=== PATIENT | male | born 1960 | race Caucasian/White ===

== ENCOUNTER 2016-08-14 07:41 | Emergency (ER) | payer OTHER ==
[2016-08-14 07:47] VITALS: BP 159/70; PULSE 50; RESP 20; TEMP 97
[2016-08-14] MEDS ORDERED: KETOROLAC 60 MG/2 ML VIAL IM STA (08:11)
--- NOTE | 2016-08-14 08:15 | ED ---
General Adult HPI - General Chief complaint: Dental/Oral Stated complaint: dental pain Time Seen by Provider: 08/14/16 07:45 Source: patient, RN notes reviewed Mode of arrival: ambulatory Limitations: no limitations - History of Present Illness Initial comments: This is a 55-year-old male who presents to the emergency pertinent complaining of an abscessed tooth. Patient states been ongoing for 2 days and getting worse. Patient states his right above his incisor on the upper left. Patient denies a fever patient denies drainage. Patient denies any other problems with that tooth in the past patient denies any injury. Patient denies any ALLERGIES to antibiotics - Related Data Previous Rx's Medication Instructions Recorded Acetaminophen with Codeine 1 each PO Q4H #20 tab 08/14/16 [Tylenol w/codeine #3] Amoxicillin 500 mg PO Q8H #30 capsule 08/14/16 Ibuprofen [Motrin] 600 mg PO Q6HR PRN #20 tab 08/14/16 Allergies Allergy/AdvReac Type Severity Reaction Status Date / Time No Known Allergies Allergy Verified 08/14/16 07:47 Review of Systems ROS Statement: Those systems with pertinent positive or pertinent negative responses have been documented in the HPI. ROS Other: All systems not noted in ROS Statement are negative. Past Medical History Past Medical History: No Reported History History of Any Multi-Drug Resistant Organisms: None Reported Past Surgical History: No Surgical Hx Reported Past Psychological History: No Psychological Hx Reported Smoking Status: Never smoker Past Alcohol Use History: None Reported Past Drug Use History: None Reported General Exam - General Exam Comments Initial Comments: GENERAL Patient is well-developed and well-nourished. Patient is in mild distress. EYES Patient's pupils are equal and round. Extraocular motion is intact Mouth Patient has an abscess above the upper left incisor SKIN Unremarkable NEURO The patient is alert and oriented 3 PYSCH Patient has normal interpersonal interactions. MUSCULOSKELETAL All 4 extremities have full range of motion Limitations: no limitations Course Vital Signs 08/14/16 07:43 Temperature 97 F L Pulse Rate 50 L Respiratory 20 Rate Blood Pressure 159/70 O2 Sat by Pulse 99 Oximetry Procedures - Incision & Drainage Consent Obtained: verbal consent Time Out Performed?: Yes Site: other (Gumline above the upper left incisor) Needle Aspiration Performed?: Yes Culture Obtained?: No Complications: pain Patient Tolerated Procedure: well Disposition Clinical Impression: Dental abscess Disposition: HOME SELF-CARE Condition: Good Instructions: Dental Abscess (ED) Additional Instructions: Patient should follow-up with a dentist. Prescriptions: Acetaminophen with Codeine [Tylenol w/codeine #3] 1 each PO Q4H #20 tab Amoxicillin 500 mg PO Q8H #30 capsule Ibuprofen [Motrin] 600 mg PO Q6HR PRN #20 tab PRN Reason: For pain Referrals: None,Stated [Primary Care Provider] - 1-2 days Time of Disposition: 08:14
== END 2016-08-14 08:23 | disposition home or self-care (01) ==
LOC: EC 07:41
DX: K04.7 Periapical abscess without sinus (principal)
CPT/HCPCS: 99282; 41800; J1885

== ENCOUNTER 2016-09-06 01:01 | Emergency (ER) | payer OTHER ==
[2016-09-06] MEDS ORDERED: methylPREDNISolone SOD SUCCI 125 MG/2 ML VIAL IM ONE (01:28)
[2016-09-06] MEDS ORDERED: KETOROLAC 60 MG/2 ML VIAL IM STA (01:28)
[2016-09-06] MEDS ORDERED: ORPHENADRINE 30 MG/ML 2 ML VIAL IM STA (01:28)
--- NOTE | 2016-09-06 01:43 | ED ---
Neck Injury/Pain HPI - General Chief Complaint: Neck Pain/Injury Stated Complaint: neck pain Time Seen by Provider: 09/06/16 01:15 Source: RN notes reviewed, old records reviewed Mode of arrival: wheelchair Limitations: no limitations - History of Present Illness Initial Comments: Patient is a 55 -year-old male with chief complaint of right sided neck spasm for the past 2 days. Patient reports that he was playing with his dogs and felt that he may have twisted her genitals neck in the wrong direction. Patient states that since then he has any pain with rotation of the neck. Patient states he has to look forward or turns entire body and orders able to move. He denies any history of chronic neck or back pain. He states that he's had muscle spasms but never to this extent before. Patient denies any fever or chills. He denies any headache, or shoulder pain. He states that the pain radiates from the base of the hairline down towards the median neck towards the shoulder blade. This be consistent with a trapezius muscle. She denies any numbness or tingling down the arm. Patient denies any recent fever, chills, shortness of breath, chest pain, back pain, abdominal pain, nausea vomiting, numbness or tingling, dysuria or hematuria, constipation or diarrhea, headaches or visual changes, or any other current symptoms - Related Data Previous Rx's Medication Instructions Recorded Cyclobenzaprine [Flexeril] 10 mg PO TID #20 tab 09/06/16 Dexamethasone 0.75 mg PO DAILY #12 tab 09/06/16 HYDROcodone/APAP 5-325MG [[place] 1 tab PO Q6HR PRN #10 tab 09/06/16 5-325] Allergies Allergy/AdvReac Type Severity Reaction Status Date / Time No Known Allergies Allergy Verified 09/06/16 01:10 Review of Systems ROS Statement: Those systems with pertinent positive or pertinent negative responses have been documented in the HPI. ROS Other: All systems not noted in ROS Statement are negative. Past Medical History Past Medical History: No Reported History History of Any Multi-Drug Resistant Organisms: None Reported Past Surgical History: Back Surgery, Ear Surgery, Hernia Repair Past Psychological History: No Psychological Hx Reported Smoking Status: Never smoker Past Alcohol Use History: Occasional Past Drug Use History: None Reported General Exam - General Exam Comments Initial Comments: Patient is a 55-year-old male. He doesn't appear to be in any acute distress. Limitations: no limitations General appearance: alert, in no apparent distress Head exam: Present: atraumatic, normocephalic, normal inspection Eye exam: Present: normal appearance, PERRL, EOMI. Absent: scleral icterus, conjunctival injection, periorbital swelling ENT exam: Present: normal exam, mucous membranes moist Neck exam: Present: normal inspection, tenderness (Patient has significant tenderness over the right trapezius muscle.). Absent: meningismus, lymphadenopathy Respiratory exam: Present: normal lung sounds bilaterally. Absent: respiratory distress, wheezes, rales, rhonchi, stridor Cardiovascular Exam: Present: regular rate, normal rhythm, normal heart sounds. Absent: systolic murmur, diastolic murmur, rubs, gallop, clicks GI/Abdominal exam: Present: soft, normal bowel sounds. Absent: distended, tenderness, guarding, rebound, rigid Extremities exam: Present: normal inspection, full ROM, normal capillary refill. Absent: tenderness, pedal edema, joint swelling, calf tenderness Back exam: Present: normal inspection Neurological exam: Present: alert, oriented X3, CN II-XII intact Psychiatric exam: Present: normal affect, normal mood Skin exam: Present: warm, dry, intact, normal color. Absent: rash Course Vital Signs 09/06/16 01:08 Temperature 97.9 F Pulse Rate 60 Respiratory 20 Rate Blood Pressure 147/79 O2 Sat by Pulse 99 Oximetry Medical Decision Making - Medical Decision Making Patient is 55-year-old male with chief complaint of right neck spasm. Patient is given IM Norflex, Toradol and Solumedrol.. Patient will be discharged with a starter pack of medications in one pain medicine to go home with. Patient given prescription for dexamethasone, Flexeril and [place]. I discussed that he needs to apply ice and heat over the area. I discussed the needs to massage the area and to do passive stretching. Discussed the importance of having a primary care provider. Return parameters discussed. - Radiology Data Radiology results: report reviewed Disc narrowing C5/C6, and C6/C7. Degenerative facet disease is seen c3/c4, c4/c5 , worst at c5/c6 on the right. Disposition Clinical Impression: Neck muscle spasm Disposition: HOME SELF-CARE Condition: Good Instructions: Muscle Spasm (ED) Additional Instructions: Apply heat and ice over the area. His and take them as directed. Patient advised to follow-up with a primary care provider. To passive stretching to and massage to release the tension for muscle. Prescriptions: Cyclobenzaprine [Flexeril] 10 mg PO TID #20 tab Dexamethasone 0.75 mg PO DAILY #12 tab HYDROcodone/APAP 5-325MG [[place] 5-325] 1 tab PO Q6HR PRN #10 tab PRN Reason: Pain Referrals: Molly Bradshaw MD [STAFF PHYSICIAN] - 1-2 days Time of Disposition: 02:12
--- NOTE | 2016-09-06 02:02 | XR ---
EXAM: XR Cervical Spine, 3 Views. CLINICAL HISTORY: Reason: Pain TECHNIQUE: Frontal and lateral views of the cervical spine. COMPARISON: No relevant prior studies available. FINDINGS: Vertebrae: Unremarkable. No definite fracture. Normal alignment. Disc spaces: Disc space narrowing at C5/C6 and C6/C7. Degenerative facet disease is seen at C3/C4, C4/C5, C5/C6, worst at C5/C6 on the right. Soft tissues: Unremarkable. IMPRESSION: No acute findings. Degenerative changes as described.
[2016-09-06] MEDS ORDERED: HYDROcodone/APAP 10-325MG 1 EACH TAB PO ONE (02:13)
[2016-09-06] MEDS ORDERED: CYCLOBENZAPRINE 10MG STARTER 3 TAB BTL PO STA (02:13)
[2016-09-06 02:31] VITALS: BP 121/79; PULSE 59; RESP 16; TEMP 99.2
== END 2016-09-06 02:31 | disposition home or self-care (01) ==
LOC: EC 01:01
DX: M62.838 Other muscle spasm (principal)
CPT/HCPCS: 72040; 99284; 96372 ×3; J2360; J2930; J1885

== ENCOUNTER 2016-09-12 03:10 | Emergency (ER) | payer OTHER ==
[2016-09-12 03:58] VITALS: BP 130/66; PULSE 76; RESP 18; TEMP 98.3
[2016-09-12] MEDS ORDERED: KETOROLAC 60 MG/2 ML VIAL IM STA (04:20)
[2016-09-12] MEDS ORDERED: ORPHENADRINE 30 MG/ML 2 ML VIAL IM STA (04:20)
--- NOTE | 2016-09-12 04:27 | ED ---
Neck Injury/Pain HPI - General Chief Complaint: Neck Pain/Injury Stated Complaint: Neck pain Time Seen by Provider: 09/12/16 03:56 Mode of arrival: ambulatory Limitations: no limitations - History of Present Illness MD Complaint: neck pain, neck injury -: days(s) Place: home Radiation: right lateral Severity: severe Quality: aching Consistency: constant Improves With: medication OTC/prescribed Worsens With: movement of neck Context: fall Associated Symptoms: none Treatments Prior to Arrival: prescription pain med - Related Data Previous Rx's Medication Instructions Recorded Cyclobenzaprine [Flexeril] 10 mg PO TID #20 tab 09/06/16 Dexamethasone 0.75 mg PO DAILY #12 tab 09/06/16 HYDROcodone/APAP 5-325MG [[place] 1 tab PO Q6HR PRN #10 tab 09/06/16 5-325] Hydrocodone/Acetaminophen [[place] 1 each PO Q6HR PRN #24 tab 09/12/16 5-325] Allergies Allergy/AdvReac Type Severity Reaction Status Date / Time No Known Allergies Allergy Verified 09/12/16 03:35 Review of Systems ROS Statement: Those systems with pertinent positive or pertinent negative responses have been documented in the HPI. ROS Other: All systems not noted in ROS Statement are negative. Constitutional: Denies: fever, weakness Respiratory: Denies: cough, dyspnea Cardiovascular: Denies: chest pain, palpitations, orthopnea Gastrointestinal: Denies: abdominal pain, vomiting Musculoskeletal: Denies: back pain Skin: Denies: rash Neurological: Denies: headache, weakness, numbness, paresthesias Past Medical History Past Medical History: No Reported History History of Any Multi-Drug Resistant Organisms: None Reported Past Surgical History: Back Surgery, Ear Surgery, Hernia Repair Past Psychological History: No Psychological Hx Reported Smoking Status: Never smoker Past Alcohol Use History: Occasional Past Drug Use History: None Reported General Exam Limitations: no limitations General appearance: alert, in no apparent distress Head exam: Present: atraumatic, normocephalic Eye exam: Present: normal appearance Neck exam: Present: tenderness, other (Patient appears to have torticollis, with decreased rotation. Patient is able to flex and extend the neck. There is increased muscle tone and there is tenderness to the right paraspinal muscles extending into the right trapezius.). Absent: meningismus, full ROM Respiratory exam: Present: normal lung sounds bilaterally. Absent: respiratory distress, wheezes, rales, rhonchi, stridor Cardiovascular Exam: Present: regular rate, normal rhythm, normal heart sounds, other (Radial pulses and capillary refill normal). Absent: systolic murmur, diastolic murmur, rubs, gallop Extremities exam: Present: normal inspection, full ROM Neurological exam: Present: alert, normal gait. Absent: motor sensory deficit Skin exam: Present: warm, dry, intact, normal color. Absent: rash Course Vital Signs 09/12/16 03:33 Temperature 98.3 F Pulse Rate 76 Respiratory 18 Rate Blood Pressure 130/66 O2 Sat by Pulse 97 Oximetry Disposition Clinical Impression: Strain of neck muscle Disposition: HOME SELF-CARE Condition: Fair Instructions: Cervical Strain (ED) Prescriptions: Hydrocodone/Acetaminophen [[place] 5-325] 1 each PO Q6HR PRN #24 tab PRN Reason: Pain Referrals: None,Stated [Primary Care Provider] - 1-2 days Chandrakant Bolanos, [Doctor of Osteopathic Medicine] - 1-2 days
--- NOTE | 2016-09-12 05:19 | CT ---
EXAM: CT Cervical Spine Without Intravenous Contrast. CLINICAL HISTORY: Reason: Pain TECHNIQUE: Axial computed tomography images of the cervical spine without intravenous contrast. CTDI is 20.6 mGy and DLP is 343.8 mGy-cm This CT exam was performed using one or more of the following dose reduction techniques: automated exposure control, adjustment of the mA and/or kV according to patient size, and/or use of iterative reconstruction technique. COMPARISON: No relevant prior studies available. FINDINGS: Vertebrae: Normal alignment of the cervical spine. Vertebral body heights are maintained. No acute fracture. Discs/spinal canal/neural foramina: Disc space narrowing at multiple levels from C5-6 through C7-T1. No significant spinal stenosis. As indicated, consider further evaluation with MRI to better evaluate for disc disease as indicated. Mild disc osteophytic bulges seen at multiple levels. Soft tissues: No prevertebral soft tissue abnormality. Lung apices: Unremarkable as visualized. IMPRESSION: 1. No acute bony abnormality. 2. Mild cervical spondylosis. Mild disc osteophytic bulges. 3. No significant spinal stenosis.
[2016-09-12] MEDS ORDERED: HYDROcodone/APAP 5-325MG 1 EACH TAB PO STA (05:36)
== END 2016-09-12 05:39 | disposition home or self-care (01) ==
LOC: EC 03:10
DX: S16.1XXA Strain of muscle, fascia and tendon at neck level, initial encounter (principal); W18.30XA Fall on same level, unspecified, initial encounter
CPT/HCPCS: 99283; 96372 ×2; 72125; J2360; J1885

== ENCOUNTER 2017-03-08 10:54 | Emergency (ER) | payer OTHER ==
[2017-03-08 11:02] VITALS: TEMP 98.5
[2017-03-08] MEDS ORDERED: SODIUM CHLORIDE 0.9% 1,000 ML IV STA (11:34)
[2017-03-08] MEDS ORDERED: RX INFO: IV CONTRAST WAS GIVEN 1 EACH MISC MISCELLANE PRN (11:34)
[2017-03-08] MEDS ORDERED: MORPHINE SULFATE 4 MG/ML SYRINGE IV STA (11:34)
[2017-03-08] MEDS ORDERED: ONDANSETRON 4 MG/2 ML VIAL IVP STA (11:34)
--- NOTE | 2017-03-08 11:38 | ED ---
Abdominal Pain HPI - General Chief Complaint: Abdominal Pain Stated Complaint: abdominal pain Time Seen by Provider: 03/08/17 11:28 Source: patient, RN notes reviewed Mode of arrival: ambulatory Limitations: no limitations - History of Present Illness Initial Comments: This a 56-year-old male presents emergency Department with chief complaint of right lower quadrant abdominal pain. Patient states this pain started last few days but much worse today. Patient states that he had some nausea and episode of dry heaving. Patient denies any known fever or chills. Denies any diarrhea , constipation, dysuria, hematuria. Patient states the pain is only in his right lower quadrant does not radiate to his back and has no history kidney stone. Patient states he believes he may have had his appendix out and present but is unsure. Patient denies any chest pain or shortness of breath. The pain is worse with movement and better at rest at this time. - Related Data Home Medications Medication Instructions Recorded Confirmed Acetaminophen Tab [Tylenol Tab] 650 mg PO Q4H PRN 03/08/17 03/08/17 Previous Rx's Medication Instructions Recorded Hydrocodone/Acetaminophen [[place] 1 tab PO Q6HR PRN #15 tab 03/08/17 5-325] Allergies Allergy/AdvReac Type Severity Reaction Status Date / Time No Known Allergies Allergy Verified 09/12/16 03:35 Review of Systems ROS Statement: Those systems with pertinent positive or pertinent negative responses have been documented in the HPI. ROS Other: All systems not noted in ROS Statement are negative. Past Medical History Past Medical History: No Reported History History of Any Multi-Drug Resistant Organisms: None Reported Past Surgical History: Back Surgery, Ear Surgery, Hernia Repair Past Psychological History: No Psychological Hx Reported Smoking Status: Never smoker Past Alcohol Use History: Occasional Past Drug Use History: None Reported General Exam Limitations: no limitations General appearance: alert, in no apparent distress Head exam: Present: atraumatic, normocephalic, normal inspection Eye exam: Present: normal appearance, PERRL, EOMI. Absent: scleral icterus, conjunctival injection, periorbital swelling Neck exam: Present: normal inspection, full ROM. Absent: tenderness, meningismus, lymphadenopathy Respiratory exam: Present: normal lung sounds bilaterally. Absent: respiratory distress, wheezes, rales, rhonchi, stridor Cardiovascular Exam: Present: regular rate, normal rhythm, normal heart sounds. Absent: systolic murmur, diastolic murmur, rubs, gallop, clicks GI/Abdominal exam: Present: soft, tenderness (Moderate tenderness right lower quadrant), normal bowel sounds. Absent: distended, guarding, rebound, rigid Back exam: Absent: CVA tenderness (R), CVA tenderness (L) Course Vital Signs 03/08/17 03/08/17 10:59 13:21 Temperature 98.5 F Pulse Rate 63 53 L Respiratory 17 20 Rate Blood Pressure 129/90 127/77 O2 Sat by Pulse 99 99 Oximetry Medical Decision Making - Medical Decision Making 56-year-old male present emergency from for right sided abdominal pain. Patient hasn't wall hernia noted on CT with no inflammatory changes no obstruction and not incarcerated. Patient will follow-up with on-call surgery. Patient also informed that he appears to have either spasm or possible mass needs a colonoscopy. - Lab Data Result diagrams: 03/08/17 11:48 03/08/17 11:48 Lab Results 03/08/17 03/08/17 03/08/17 Range/Units 11:48 11:48 11:48 WBC 6.2 (3.8-10.6) k/uL RBC 4.64 (4.30-5.90) m/uL Hgb 10.9 L (13.0-17.5) gm/dL Hct 36.1 L (39.0-53.0) % MCV 77.8 L (80.0-100.0) fL MCH 23.6 L (25.0-35.0) pg MCHC 30.3 L (31.0-37.0) g/dL RDW 16.9 H (11.5-15.5) % Plt Count 344 (150-450) k/uL Neutrophils % 66 % Lymphocytes % 22 % Monocytes % 6 % Eosinophils % 3 % Basophils % 1 % Neutrophils # 4.1 (1.3-7.7) k/uL Lymphocytes # 1.4 (1.0-4.8) k/uL Monocytes # 0.4 (0-1.0) k/uL Eosinophils # 0.2 (0-0.7) k/uL Basophils # 0.1 (0-0.2) k/uL Hypochromasia Marked Anisocytosis Slight Microcytosis Slight PT (9.0-12.0) sec INR (<1.2) APTT (22.0-30.0) sec Sodium 139 (137-145) mmol/L Potassium 4.8 (3.5-5.1) mmol/L Chloride 107 (98-107) mmol/L Carbon Dioxide 19 L (22-30) mmol/L Anion Gap 13 mmol/L BUN 21 H (9-20) mg/dL Creatinine 0.90 (0.66-1.25) mg/dL Est GFR (MDRD) Af Amer >60 (>60 ml/min/1.73 sqM) Est GFR (MDRD) Non-Af >60 (>60 ml/min/1.73 sqM) Glucose 109 H (74-99) mg/dL Plasma Lactic Acid Primitivo 1.4 (0.7-2.0) mmol/L Calcium 9.1 (8.4-10.2) mg/dL Total Bilirubin 0.5 (0.2-1.3) mg/dL AST 25 (17-59) U/L ALT 33 (21-72) U/L Alkaline Phosphatase 74 (38-126) U/L Total Protein 6.8 (6.3-8.2) g/dL Albumin 4.0 (3.5-5.0) g/dL Amylase 40 (30-110) U/L Lipase 82 (23-300) U/L / Range/Units 11:48 WBC (3.8-10.6) k/uL RBC (4.30-5.90) m/uL Hgb (13.0-17.5) gm/dL Hct (39.0-53.0) % MCV (80.0-100.0) fL MCH (25.0-35.0) pg MCHC (31.0-37.0) g/dL RDW (11.5-15.5) % Plt Count (150-450) k/uL Neutrophils % % Lymphocytes % % Monocytes % % Eosinophils % % Basophils % % Neutrophils # (1.3-7.7) k/uL Lymphocytes # (1.0-4.8) k/uL Monocytes # (0-1.0) k/uL Eosinophils # (0-0.7) k/uL Basophils # (0-0.2) k/uL Hypochromasia Anisocytosis Microcytosis PT 10.0 (9.0-12.0) sec INR 1.0 (<1.2) APTT 23.7 (22.0-30.0) sec Sodium (137-145) mmol/L Potassium (3.5-5.1) mmol/L Chloride (98-107) mmol/L Carbon Dioxide (22-30) mmol/L Anion Gap mmol/L BUN (9-20) mg/dL Creatinine (0.66-1.25) mg/dL Est GFR (MDRD) Af Amer (>60 ml/min/1.73 sqM) Est GFR (MDRD) Non-Af (>60 ml/min/1.73 sqM) Glucose (74-99) mg/dL Plasma Lactic Acid Primitivo (0.7-2.0) mmol/L Calcium (8.4-10.2) mg/dL Total Bilirubin (0.2-1.3) mg/dL AST (17-59) U/L ALT (21-72) U/L Alkaline Phosphatase (38-126) U/L Total Protein (6.3-8.2) g/dL Albumin (3.5-5.0) g/dL Amylase (30-110) U/L Lipase (23-300) U/L Disposition Clinical Impression: Abdominal pain, Inguinal hernia Disposition: HOME SELF-CARE Condition: Stable Instructions: Inguinal Hernia (ED) Additional Instructions: Follow-up with on-call surgery for evaluation and colonoscopy.Please return to the Emergency Department if symptoms worsen or any other concerns. Prescriptions: Hydrocodone/Acetaminophen [[place] 5-325] 1 tab PO Q6HR PRN #15 tab PRN Reason: Pain Referrals: None,Stated [Primary Care Provider] - 1-2 days Earl Gonzalez MD [STAFF PHYSICIAN] - 1-2 days Time of Disposition: 14:00
[2017-03-08 12:10] LABS: Anisocytosis Slight; Basophils # (A) 0.1 k/uL (0-0.2); Basophils % (A) 1 %; CH 23.6; CHCM 30.4; Eosinophils # (A) 0.2 k/uL (0-0.7); Eosinophils % (A) 3 %; HCT 36.1 % (39.0-53.0); HDW 2.85; HGB 10.9 gm/dL (13.0-17.5); Hypochromasia Marked; Luc # (Auto) 0.13; Luc % (Auto) 2; Lymphocytes # (A) 1.4 k/uL (1.0-4.8); Lymphocytes % (A) 22 %; MCH 23.6 pg (25.0-35.0); MCHC 30.3 g/dL (31.0-37.0); MCV 77.8 fL (80.0-100.0); Mean Platelet Volume 7.1; Microcytosis Slight; Monocytes # (A) 0.4 k/uL (0-1.0); Monocytes % (A) 6 %; Neutrophils # (A) 4.1 k/uL (1.3-7.7); Neutrophils % (A) 66 %; RBC 4.64 m/uL (4.30-5.90); RDW 16.9 % (11.5-15.5); WBC 6.2 k/uL (3.8-10.6); WBC (Perox) 6.45
[2017-03-08 12:18] LABS: ALT 33 U/L (21-72); AST 25 U/L (17-59); Alkaline Phosphatase 74 U/L (38-126); Amylase 40 U/L (30-110); Anion Gap 13 mmol/L; Blood Urea Nitrogen 21 mg/dL (9-20); Calcium 9.1 mg/dL (8.4-10.2); Carbon Dioxide 19 mmol/L (22-30); Chloride 107 mmol/L (98-107); Glucose 109 mg/dL (74-99); Non-African American GFR(MDRD) >60 (>60 ml/min/1.73 sqM); Potassium 4.8 mmol/L (3.5-5.1); Sodium 139 mmol/L (137-145); Total Bilirubin 0.5 mg/dL (0.2-1.3); Total Protein 6.8 g/dL (6.3-8.2)
[2017-03-08 12:24] LABS: Partial Thromboplastin Time 23.7 sec (22.0-30.0)
[2017-03-08 13:21] VITALS: RESP 20
--- NOTE | 2017-03-08 13:25 | CT ---
EXAMINATION TYPE: CT abdomen pelvis w con DATE OF EXAM: 03/08/2017 COMPARISON: NONE HISTORY: Patient complains of bilateral pelvic pain. Right lower quadrant abdominal pain per order CT DLP: 1474 mGycm, Automated Exposure Control for Dose Reduction was Utilized. CONTRAST: CT scan of the abdomen and pelvis is performed with oral and with IV Contrast, patient injected with 100 mL of Omnipaque 300. FINDINGS: LUNG BASES: No significant abnormality is appreciated. LIVER/GB: No significant abnormality is appreciated. PANCREAS: No significant abnormality is seen. SPLEEN: No significant abnormality is seen. ADRENALS: No significant abnormality is seen. KIDNEYS: There is subcentimeter low dense exophytic lesion laterally mid pole level left kidney seen best series 7 image 28 too small to further characterize but presumed benign. BOWEL: There is small to moderate-sized hiatal hernia. There is no suspicious small or large bowel d ilatation. Fecal material is seen in terminal ileum. Appendix is not seen with certainty and may be s urgically absent. There is no evidence inflammatory change at base of cecum. There are prominent dive rticula in the left and sigmoid colon. There is no CT evidence for acute diverticulitis. There is foc al moderate concentric wall thickening mid sigmoid colon right pelvis on axial image 61. PROSTATE/SEMINAL VESICLES: No gross abnormality seen. LYMPH NODES: No greater than 1cm abdominal or pelvic lymph nodes are appreciated. OSSEOUS STRUCTURES: Mild joint space loss in both hips is present. There is postsurgical change L4-L5 level with bilateral interpedicular rods and screws. There is grade 1 anterolisthesis of L4-L5 with artificial disc material. There is mild to moderate multilevel spurring in the thoracic spine. OTHER: There is moderate to large size right inguinal hernia containing fat and portion of small veronica l loop. No significant proximal dilatation is seen to suggest obstruction. There is moderate-sized umbilical hernia containing fat and small mesenteric vessels. IMPRESSION: 1. There there is small bowel feces sign consistent with delayed passage of ingested material to col onic level. There is right inguinal hernia containing portion of distal ileum. No suspicious dilatati on is seen to suggest obstruction. No suspicious inflammatory changes present. There is diverticulosi s without convincing CT evidence for acute diverticulitis. 2. Short segment of moderate concentric wall thickening mid sigmoid colon, findings likely product of spasm, neoplasm cannot be excluded. Colonoscopy follow-up advised if has not been performed last 3 y ears time.
[2017-03-08] MEDS ORDERED: MORPHINE SULFATE 2 MG/ML SYRINGE IVP ONE (13:46)
[2017-03-08 14:02] VITALS: BP 132/79; PULSE 45
== END 2017-03-08 14:25 | disposition home or self-care (01) ==
LOC: EC 10:54
DX: K40.90 Unilateral inguinal hernia, without obstruction or gangrene, not specified as recurrent (principal)
CPT/HCPCS: 99284; 96374; 96375; 96376; 96361 ×2; 36415; 80053; 82150; 83605; 83690; 85025; 85610; 85730; 74177; J2270 ×2; J2405; Q9967

== ENCOUNTER → 2017-07-19 | Outpatient (CLI) | payer OTHER ==
--- NOTE | 2017-07-19 12:01 | CT ---
EXAMINATION TYPE: CT abdomen pelvis w con DATE OF EXAM: 07/19/2017 COMPARISON: 03/08/2017 HISTORY: Abdominal pain since hernia repair [address] DLP: 1117.2 mGycm Automated exposure control for dose reduction was used. TECHNIQUE: Helical acquisition of images was performed from the lung bases through the pelvis. CONTRAST: Performed with Oral Contrast and with IV Contrast, patient injected with 100 mL of Omnipaque 300. FINDINGS: LUNG BASES: The lung bases are clear. Moderate hiatal hernia seen within the visualized inferior post erior mediastinum. LIVER/GB: No significant abnormality is appreciated. PANCREAS: No significant abnormality is seen. SPLEEN: No significant abnormality is seen. ADRENALS: No significant abnormality is seen. KIDNEYS: Again there is a 7 mm hypoattenuating left renal lesion emanating from the mid pole that is too small to accurately characterize however this measures fluid attenuation and is most likely a trevon ign renal cyst. Otherwise the kidneys enhance symmetrically. FREE AIR: No free air is visualized. ADENOPATHY: None visualized URINARY BLADDER: No significant abnormality is seen. OSSEOUS STRUCTURES: Cephalad joint space loss and acetabular roof sclerosis is mild bilaterally. Pos tsurgical fixation at L4-L5 with redemonstration of grade 1 anterolisthesis on L4-L5 is unchanged fro m the prior. Throughout the remainder the visualized thoracic or lumbar spine there is mild multileve l degenerative disc disease. BOWEL: Numerous sigmoid and colonic diverticula are present without pericolonic fat stranding. The p reviously seen focal narrowing of the sigmoid colon is not redemonstrated on today's examination. No evidence of obstruction. Small bowel unremarkable. OTHER: The previously seen small periumbilical hernia has been surgically repaired in the interim. Mi ld skin thickening is seen in the periumbilical region without focal fluid collection. No subcutaneou s edema or emphysema. Moderate bilateral fat filled inguinal hernias are noted. IMPRESSION: 1. INTERVAL SURGICAL REPAIR OF THE PREVIOUSLY SEEN PERIUMBILICAL HERNIA. THERE IS MILD SKIN THICKENIN G IN THE PERIUMBILICAL REGION, LIKELY POSTSURGICAL REACTIVE WITHOUT FOCAL FLUID COLLECTION, SUBCUTANE OUS EDEMA, OR SUBCUTANEOUS EMPHYSEMA. 2. MODERATE BILATERAL FAT FILLED ANGLE HERNIAS. 3. MODERATE HIATAL HERNIA.
== END | disposition home or self-care (01) ==
LOC: RADCTMAIN 09:51
PROVIDERS: ATTEND Surgery
DX: K44.9 Diaphragmatic hernia without obstruction or gangrene (principal); K46.9 Unspecified abdominal hernia without obstruction or gangrene; R19.05 Periumbilic swelling, mass or lump; Z98.890 Other specified postprocedural states
CPT/HCPCS: 74177; Q9967

== ENCOUNTER 2017-08-13 16:58 | Emergency (ER) | payer OTHER ==
[2017-08-13 17:12] VITALS: PULSE 76
[2017-08-13] MEDS ORDERED: RX INFO: IV CONTRAST WAS GIVEN 1 EACH MISC MISCELLANE PRN (17:25)
[2017-08-13] MEDS ORDERED: KETOROLAC 30 MG/ML 1 ML VIAL IVP STA (17:25)
--- NOTE | 2017-08-13 17:53 | ED ---
General Adult HPI - General Chief complaint: Abdominal Pain Stated complaint: Abd Pain/Post Op 1 month Time Seen by Provider: 08/13/17 17:18 Source: patient, RN notes reviewed, old records reviewed Mode of arrival: ambulatory Limitations: no limitations - History of Present Illness Initial comments: 56-year-old male presenting with two-week history of right groin pain. Patient has one month postop right inguinal and umbilical hernia repair. He states that approximately 2 episode he had an episode where he sneezed and felt pain in his groin. Pain is been constant since that time. He has noticed some swelling associated with the pain. Denies any change in his bowels. He is having normal bowel movements. Denies fever or chills. Denies nausea vomiting. - Related Data Previous Rx's Medication Instructions Recorded Docusate [Colace] 100 mg PO BID #30 capsule 08/13/17 HYDROcodone/APAP 7.5-325MG [[place] 1 tab PO Q6HR PRN #24 tab 08/13/17 7.5-325] Ibuprofen [Motrin] 600 mg PO Q8HR PRN #24 tab 08/13/17 Allergies Allergy/AdvReac Type Severity Reaction Status Date / Time No Known Allergies Allergy Verified 08/13/17 17:39 Review of Systems ROS Statement: Those systems with pertinent positive or pertinent negative responses have been documented in the HPI. ROS Other: All systems not noted in ROS Statement are negative. Past Medical History Past Medical History: No Reported History History of Any Multi-Drug Resistant Organisms: None Reported Past Surgical History: Back Surgery, Ear Surgery, Hernia Repair Past Psychological History: No Psychological Hx Reported Smoking Status: Never smoker Past Alcohol Use History: Occasional Past Drug Use History: None Reported General Exam Limitations: no limitations General appearance: alert, in no apparent distress Head exam: Present: atraumatic, normocephalic Eye exam: Present: normal appearance, PERRL, EOMI ENT exam: Present: normal exam Neck exam: Present: normal inspection. Absent: tenderness, meningismus Respiratory exam: Present: normal lung sounds bilaterally. Absent: respiratory distress, wheezes, rales Cardiovascular Exam: Present: regular rate, normal rhythm GI/Abdominal exam: Present: soft, hernia (Right inguinal hernia, tender to palpation, not reducible). Absent: distended, tenderness Extremities exam: Present: normal inspection, normal capillary refill. Absent: pedal edema Neurological exam: Present: alert, oriented X3, CN II-XII intact. Absent: motor sensory deficit Psychiatric exam: Present: normal affect, normal mood Skin exam: Present: warm, dry, intact. Absent: cyanosis, diaphoretic Course Vital Signs 08/13/17 17:09 Temperature 97.9 F Pulse Rate 76 Respiratory 20 Rate Blood Pressure 134/84 O2 Sat by Pulse 100 Oximetry Medical Decision Making - Medical Decision Making 56-year-old male presenting for inguinal pain, concern for recurrence having little hernia. Patient is tender in the right inguinal canal. CT is obtained, shows fat-containing inguinal hernia. No bowel obstruction. Laboratory studies are unremarkable. Vital signs stable. Patient will be given pain medication and will follow-up with his general surgeon. - Lab Data Result diagrams: 08/13/17 17:49 08/13/17 17:49 Lab Results 08/13/17 08/13/17 08/13/17 Range/Units 17:49 17:49 17:49 WBC 7.2 (3.8-10.6) k/uL RBC 4.73 (4.30-5.90) m/uL Hgb 11.2 L (13.0-17.5) gm/dL Hct 35.9 L (39.0-53.0) % MCV 75.9 L (80.0-100.0) fL MCH 23.6 L (25.0-35.0) pg MCHC 31.1 (31.0-37.0) g/dL RDW 15.4 (11.5-15.5) % Plt Count 333 (150-450) k/uL Neutrophils % 65 % Lymphocytes % 24 % Monocytes % 5 % Eosinophils % 2 % Basophils % 1 % Neutrophils # 4.7 (1.3-7.7) k/uL Lymphocytes # 1.7 (1.0-4.8) k/uL Monocytes # 0.4 (0-1.0) k/uL Eosinophils # 0.2 (0-0.7) k/uL Basophils # 0.1 (0-0.2) k/uL Hypochromasia Moderate Microcytosis Slight Sodium 141 (137-145) mmol/L Potassium 4.5 (3.5-5.1) mmol/L Chloride 107 (98-107) mmol/L Carbon Dioxide 23 (22-30) mmol/L Anion Gap 11 mmol/L BUN 20 (9-20) mg/dL Creatinine 1.00 (0.66-1.25) mg/dL Est GFR (MDRD) Af Amer >60 (>60 ml/min/1.73 sqM) Est GFR (MDRD) Non-Af >60 (>60 ml/min/1.73 sqM) Glucose 102 H (74-99) mg/dL Plasma Lactic Acid Primitivo 0.8 (0.7-2.0) mmol/L Calcium 9.8 (8.4-10.2) mg/dL Total Bilirubin 0.4 (0.2-1.3) mg/dL AST 19 (17-59) U/L ALT 23 (21-72) U/L Alkaline Phosphatase 76 (38-126) U/L Total Protein 7.3 (6.3-8.2) g/dL Albumin 4.3 (3.5-5.0) g/dL Amylase 58 (30-110) U/L Lipase 103 (23-300) U/L Disposition Clinical Impression: Inguinal hernia Disposition: HOME SELF-CARE Condition: Good Instructions: Inguinal Hernia (ED) Prescriptions: Docusate [Colace] 100 mg PO BID #30 capsule HYDROcodone/APAP 7.5-325MG [[place] 7.5-325] 1 tab PO Q6HR PRN #24 tab PRN Reason: Pain Ibuprofen [Motrin] 600 mg PO Q8HR PRN #24 tab PRN Reason: Pain Referrals: None,Stated [Primary Care Provider] - 1-2 days Gaby Soriano MD [STAFF PHYSICIAN] - 1-2 days Time of Disposition: 20:15
[2017-08-13 18:01] LABS: Basophils # (A) 0.1 k/uL (0-0.2); Basophils % (A) 1 %; Eosinophils # (A) 0.2 k/uL (0-0.7); Eosinophils % (A) 2 %; HCT 35.9 % (39.0-53.0); HGB 11.2 gm/dL (13.0-17.5); Hypochromasia Moderate; Lymphocytes # (A) 1.7 k/uL (1.0-4.8); Lymphocytes % (A) 24 %; MCH 23.6 pg (25.0-35.0); MCHC 31.1 g/dL (31.0-37.0); MCV 75.9 fL (80.0-100.0); Mean Platelet Volume 8.2; Microcytosis Slight; Monocytes # (A) 0.4 k/uL (0-1.0); Monocytes % (A) 5 %; Neutrophils # (A) 4.7 k/uL (1.3-7.7); Neutrophils % (A) 65 %; Platelet Count 333 k/uL (150-450); RBC 4.73 m/uL (4.30-5.90); RDW 15.4 % (11.5-15.5); WBC 7.2 k/uL (3.8-10.6)
[2017-08-13 18:12] LABS: ALT 23 U/L (21-72); AST 19 U/L (17-59); Albumin 4.3 g/dL (3.5-5.0); Alkaline Phosphatase 76 U/L (38-126); Amylase 58 U/L (30-110); Anion Gap 11 mmol/L; Blood Urea Nitrogen 20 mg/dL (9-20); Calcium 9.8 mg/dL (8.4-10.2); Carbon Dioxide 23 mmol/L (22-30); Chloride 107 mmol/L (98-107); Glucose 102 mg/dL (74-99); Lipase 103 U/L (23-300); Potassium 4.5 mmol/L (3.5-5.1); Sodium 141 mmol/L (137-145); Total Bilirubin 0.4 mg/dL (0.2-1.3); Total Protein 7.3 g/dL (6.3-8.2)
--- NOTE | 2017-08-13 20:07 | CT ---
EXAMINATION TYPE: CT abdomen pelvis w con DATE OF EXAM: 08/13/2017 COMPARISON: NONE INDICATION: Right sided groin pain for 2 weeks post op hernia repair 1 month ago DLP: 1212.6 mGycm, Automated exposure control for dose reduction was used. CONTRAST: 100 mL of Omnipaque 300. Study performed without Oral Contrast TECHNIQUE: Axial images were obtained from above the diaphragm to the pubic rami in the axial plane a t 5 mm thick sections. Reconstructed images are reviewed on the computer in the coronal plane. FINDINGS: Limited CT sections are obtained the lung bases. The lung bases are clear. CT ABDOMEN: Liver: Normal Spleen: Normal Pancreas: Normal Adrenal glands: The adrenal glands are normal. Gallbladder: Decompressed but otherwise unremarkable Kidneys: No masses are evident. No hydronephrosis is present. No cysts are present. Delayed images were obtained through the kidneys, which remain unremarkable. Aorta: Normal Inferior vena cava: Normal. CT PELVIS: Beam hardening artifact at the L4-5 S1 level from pedicle screws has mild limitation. Loops of bowel within the abdomen and pelvis are normal. There is fecal debris within the colon. Scattered diverticuli are within the sigmoid colon. Appendix: Not identified. No suspicious inflammatory changes are dilated tubular structures are evide nt. Urinary bladder: Normal. Genitourinary structures: Osseous structures: No suspicious lytic or sclerotic lesions. Postsurgical changes are within the low er lumbar spine. There appears to be a fat-containing inguinal hernia on the right. Postsurgical changes are evident o n the right. No loops of bowel appear involved although they are in close approximation with the repa ir. Small amount of left inguinal hernia may also be present. IMPRESSIONS: 1. Recurrent or residual inguinal hernias. 2. Diverticulosis without acute diverticulitis.
[2017-08-13] MEDS ORDERED: MORPHINE SULFATE 4 MG/ML SYRINGE IVP STA (20:14)
[2017-08-13 20:39] VITALS: BP 140/80; RESP 18; TEMP 98
== END 2017-08-13 20:30 | disposition home or self-care (01) ==
LOC: EC 16:58
DX: K40.91 Unilateral inguinal hernia, without obstruction or gangrene, recurrent (principal); Z98.890 Other specified postprocedural states
CPT/HCPCS: 36415; 80053; 82150; 83605; 83690; 85025; 74177; 99285; 96374; 96375; J2270; J1885; Q9967

== ENCOUNTER 2018-01-19 00:55 | Emergency (ER) | payer OTHER ==
[2018-01-19] MEDS ORDERED: HYDROcodone/APAP 5-325MG 1 EACH TAB PO STA (02:46)
--- NOTE | 2018-01-19 02:47 | ED ---
General Adult HPI - General Chief complaint: Dental/Oral Stated complaint: DENTAL PAIN,KNEE PAIN Source: patient Mode of arrival: ambulatory Limitations: no limitations - History of Present Illness Initial comments: Dictation was produced using [employer] dictation software. please excuse any grammatical, word or spelling errors. Chief Complaint: 57-year-old male with no significant past medical history presents with dental pain. History of Present Illness: Patient states that his dental pain has been acting up since today. Patient has poor dentition has not seen a dentist since childhood. Patient states that he chews tobacco regular basis. Patient states he has pain to his left incisor. Denies any constitutional symptoms. The ROS documented in this emergency department record has been reviewed and confirmed by me. Those systems with pertinent positive or negative responses have been documented in the HPI. All other systems are other negative and/or noncontributory. - Related Data Previous Rx's Medication Instructions Recorded Docusate [Colace] 100 mg PO BID #30 capsule 08/13/17 HYDROcodone/APAP 7.5-325MG [[place] 1 tab PO Q6HR PRN #24 tab 08/13/17 7.5-325] Ibuprofen [Motrin] 600 mg PO Q8HR PRN #24 tab 08/13/17 Amoxic-Pot Clav 875-125Mg 1 tab PO Q12HR #14 tablet 01/19/18 [Augmentin 875-125] HYDROcodone/APAP 5-325MG [[place] 5] 1 each PO Q6HR PRN #6 tab 01/19/18 Allergies Allergy/AdvReac Type Severity Reaction Status Date / Time No Known Allergies Allergy Verified 01/19/18 01:07 Review of Systems ROS Statement: Those systems with pertinent positive or pertinent negative responses have been documented in the HPI. ROS Other: All systems not noted in ROS Statement are negative. Past Medical History Past Medical History: No Reported History History of Any Multi-Drug Resistant Organisms: None Reported Past Surgical History: Back Surgery, Ear Surgery, Hernia Repair Past Psychological History: No Psychological Hx Reported Smoking Status: Never smoker Past Alcohol Use History: Occasional Past Drug Use History: None Reported General Exam - General Exam Comments Initial Comments: PHYSICAL EXAM: General Impression: Alert and oriented x3, not in acute distress HEENT: Normocephalic atraumatic, extra-ocular movements intact, pupils equal and reactive to light bilaterally, mucous membranes moist, poor dentition, tenderness to tapping of the left lateral incisor. No gingival abscess or gingival fluctuance Cardiovascular: Heart regular rate and rhythm, S1&S2 audible, no murmurs, rubs or gallops Chest: Lungs clear to auscultation bilaterally, no rhonchi, no wheeze, no rales Abdomen: Bowel sounds present, abdomen soft, non-tender, non-distended, no organomegaly Musculoskeletal: Pulses present and equal in all extremities, no peripheral edema Motor: Power 5/5 bilaterally, no focal deficits noted Neurological: CN II-XII grossly intact, no focal motor or sensory deficits noted Skin: Intact with no visualized rashes Psych: Normal affect and mood Limitations: no limitations Course Vital Signs 01/19/18 01:04 Temperature 98.2 F Pulse Rate 59 L Respiratory 18 Rate Blood Pressure 153/82 O2 Sat by Pulse 99 Oximetry Medical Decision Making - Medical Decision Making ED course: 57-year-old male presents with dental pain. Vital signs upon arrival are within acceptable limits. Physical examination positive for tender tooth to the left lateral incisor. Patient given 1 tablet of [place]. Prescription provided for 2 day course of [place] and antibiotics. He is urged to follow up with dentist as soon as possible. Patient offered dental block over did not feel that his pain was severe enough to receive an oral injection. Disposition Clinical Impression: Dental abscess Disposition: HOME SELF-CARE Condition: Fair Instructions: Toothache (ED) Prescriptions: Amoxic-Pot Clav 875-125Mg [Augmentin 875-125] 1 tab PO Q12HR #14 tablet HYDROcodone/APAP 5-325MG [[place] 5] 1 each PO Q6HR PRN #6 tab PRN Reason: Pain Is patient prescribed a controlled substance at d/c from ED?: Yes If prescribed controlled substance>3 days was MAPS reviewed?: Prescribed <3 Days Referrals: None,Stated [Primary Care Provider] - 1-2 days Time of Disposition: 02:46
[2018-01-19] MEDS ORDERED: MORPHINE SULFATE 4 MG/ML SYRINGE IM PRN (02:50)
[2018-01-19 03:19] VITALS: BP 161/88; PULSE 56; RESP 16; TEMP 98.3
== END 2018-01-19 03:19 | disposition home or self-care (01) ==
LOC: EC 00:55
DX: K04.7 Periapical abscess without sinus (principal); M25.569 Pain in unspecified knee; Z98.890 Other specified postprocedural states; Z72.0 Tobacco use
CPT/HCPCS: 99283; 96372; J2270